=== PATIENT | male | born 1970 ===

== ENCOUNTER 2016-12-26 09:45 | Emergency (ER) | payer BC, OTHER ==
[2016-12-26 11:19] VITALS: BP 131/86
--- NOTE | 2016-12-26 12:11 | UC ---
Throat Pain/Nasal Kenneth HPI - HPI Summary HPI Summary: increase sinus drainage, congestion for the past few days. denies any fever, cough or ELIAS - History of Current Complaint Hx Obtained From: Patient Onset/Duration: Sudden Onset, Lasting Days Severity: Moderate Cough: None Associated Signs & Symptoms: Positive: Sinus Discomfort, Nasal Discharge - Epiglottits Risk Factors Epiglottis Risk Factors: Negative <Lisette Lu - Last Filed: 12/26/16 12:07> <Jane Sanon - Last Filed: 12/26/16 12:42> - History of Current Complaint Chief Complaint: UCRespiratory Stated Complaint: SINUS ISSUE Time Seen by Provider: 12/26/16 11:45 - Allergies/Home Medications Allergies/Adverse Reactions: Allergies Allergy/AdvReac Type Severity Reaction Status Date / Time No Known Allergies Allergy Verified 12/26/16 11:19 PMH/Surg Hx/FS Hx/Imm Hx Previously Healthy: Yes Endocrine History Of: Denies: Diabetes, Thyroid Disease Cardiovascular History Of: Denies: Cardiac Disorders, Hypertension Respiratory History Of: Denies: COPD, Asthma GI/ History Of: Denies: Ulcer - Surgical History Surgical History: None - Family History Known Family History: Negative: Cardiac Disease, Hypertension - Social History Alcohol Use: Occasionally Substance Use Type: None Smoking Status (MU): Never Smoked Tobacco - Immunization History Most Recent Influenza Vaccination: 2015 <Lisette Lu - Last Filed: 12/26/16 12:07> Review of Systems Constitutional: Negative Skin: Negative Eyes: Negative ENT: Sore Throat, Nasal Discharge Respiratory: Negative Cardiovascular: Negative Gastrointestinal: Negative Genitourinary: Negative Motor: Negative Neurovascular: Negative Musculoskeletal: Negative Neurological: Negative Psychological: Negative All Other Systems Reviewed And Are Negative: Yes <Lisette Lu - Last Filed: 12/26/16 12:07> Physical Exam Triage Information Reviewed: Yes Appearance: Well-Appearing, Well-Nourished, Pain Distress Vital Signs: Initial Vital Signs Temp 97.9 F 12/26/16 11:14 Pulse 51 12/26/16 11:14 Resp 18 12/26/16 11:14 BP 131/86 12/26/16 11:14 Pulse Ox 99 12/26/16 11:14 Eye Exam: Normal Eyes: Positive: Conjunctiva Clear ENT: Positive: Pharyngeal erythema, Nasal congestion, TMs normal Neck exam: Normal Neck: Positive: Supple, Nontender, No Lymphadenopathy Respiratory Exam: Normal Respiratory: Positive: Chest non-tender, Lungs clear, Normal breath sounds Cardiovascular Exam: Normal Cardiovascular: Positive: RRR, No Murmur Abdominal Exam: Normal Abdomen Description: Positive: Nontender, No Organomegaly, Soft Bowel Sounds: Positive: Present Musculoskeletal Exam: Normal Musculoskeletal: Positive: Strength Intact, ROM Intact, No Edema Neurological Exam: Normal Neurological: Positive: Alert Psychological Exam: Normal Skin Exam: Normal <Lisette Lu - Last Filed: 12/26/16 12:07> Vital Signs: Initial Vital Signs Temp 97.9 F 12/26/16 11:14 Pulse 51 12/26/16 11:14 Resp 18 12/26/16 11:14 BP 131/86 12/26/16 11:14 Pulse Ox 99 12/26/16 11:14 <Jane Sanon - Last Filed: 12/26/16 12:42> Throat Pain/Nasal Course/Dx - Course Course Of Treatment: hx obtained, exam performed, meds reviewed, educated on sinus congestion versus sinus infection. prednisone prescribed. - Differential Dx/Diagnosis Differential Diagnosis/HQI/PQRI: Influenza, Laryngitis, Mononucleosis, Peritonsillar Abscess, Sinusitis Provider Diagnoses: Sinus congestion. Viral symtpoms <Lisette Lu - Last Filed: 12/26/16 12:07> Discharge <Lisette Lu - Last Filed: 12/26/16 12:07> <Jane Sanon - Last Filed: 12/26/16 12:42> - Discharge Plan Condition: Stable Disposition: HOME Prescriptions: predniSONE TAB* [Deltasone TAB*] 40 mg PO DAILY #14 tab Patient Education Materials: Rhinosinusitis (ED), Nasal Rinse (ED) Referrals: Juan Ravi MD [Primary Care Provider] - Additional Instructions: 1. use the prednisone as prescribed 2. Increase your fluid intake to keep the muscus fluid, 3. Warm compresses to the sinuses 4. Nasal wash, such as a nasal spray, OTC flonase, or netipot are very effective in clearing the sinuses. 5. Follow up with any worsening symtpoms. Attestation Statement User Type: Provider - I was available for consult. This patient was seen by the [facility]. The patient was not presented to, seen by, or examined by me. <Jane Sanon - Last Filed: 12/26/16 12:42>
== END 2016-12-26 12:16 | disposition home or self-care (01) ==
LOC: UCEAST 09:45
DX: R09.81 Nasal congestion (principal); B34.9 Viral infection, unspecified
CPT/HCPCS: 99212; G0463